=== PATIENT | female | born 1970 | race Two or more races ===

== ENCOUNTER 2019-07-16 08:50 | Emergency (ER) | payer SELFPAY ==
[~2019-07-16] VITALS: Ht 162.6 cm; Wt 80.3 kg
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
--- NOTE | 2019-07-16 09:10 | NUR ---
DR. MANZANARES AT BEDSIDE
[2019-07-16] MEDS ORDERED: IBUPROFEN 400 MG TABLET ONE (09:15)
[2019-07-16] MEDS ORDERED: METHOCARBAMOL (500MG) 500 MG TABLET ONE (09:15)
[2019-07-16] MEDS ORDERED: LORAZEPAM 0.5 MG TABLET ONE (09:15)
[2019-07-16] MEDS ORDERED: IBUPROFEN 400 MG TABLET PO ONE (09:30)
[2019-07-16] MEDS ORDERED: LORAZEPAM 1 MG TABLET PO ONE (09:30)
[2019-07-16] MEDS ORDERED: METHOCARBAMOL (500MG) 500 MG TABLET PO ONE (09:30)
--- NOTE | 2019-07-16 11:15 | NUR ---
Patient discharged to home in stable condition. Written and verbal after care instructions given. Patient verbalizes understanding of instruction.
[2019-07-16 11:16] VITALS: BP 53/67
== END 2019-07-16 11:16 | disposition home or self-care (01) ==
LOC: ER 08:52
DX: M25.512 Pain in left shoulder (principal); M25.522 Pain in left elbow; M25.532 Pain in left wrist; M79.642 Pain in left hand; F41.9 Anxiety disorder, unspecified; R42 Dizziness and giddiness; I10 Essential (primary) hypertension; V49.49XA Driver injured in collision with other motor vehicles in traffic accident, initial encounter; Y93.89 Activity, other specified; Y92.89 Other specified places as the place of occurrence of the external cause; Y99.8 Other external cause status
CPT/HCPCS: 71045-TC; 73030-TC